=== PATIENT | female | born 2005 | race Caucasian/White ===

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

== ENCOUNTER 2025-01-06 20:03 | Emergency (ER) | payer OTHER, SELFPAY ==
[2025-01-06 20:05] VITALS: BP 115/82
[2025-01-06 21:17] VITALS: BMI 22.4
[2025-01-06] MEDS: NSS 1000 IV (21:17)
[2025-01-06 21:21] LABS: Hematocrit 39.5 % (37.0-47.0); Hemoglobin 13.1 g/dL (12.0-16.0); Mean Corp Hgb Conc. 33.2 g/dL (33.0-37.0); Mean Corpuscular Volume 85.9 fL (81.0-99.0); Nucleated Red Blood Cells % 0 %; Platelet Count 362 10^3/uL (130-400); Red Cell Dist. Width 12.5 % (11.5-14.5)
[2025-01-06 21:23] LABS: Urine Character Clear (Clear)
[2025-01-06 21:25] VITALS: BP 98/67
[2025-01-06 21:33] LABS: D-Dimer 0.33 ug/mlFEU (0.00-0.50)
[2025-01-06 21:37] LABS: COVID-19 Antigen Negative (Negative); HCG, Serum Qualitative Screen Negative
[2025-01-06 21:39] LABS: ALT (SGPT) 12 U/L (0-35); AST (SGOT) 19 U/L (14-36); Albumin 4.0 g/dl (3.5-5.0); Alkaline Phosphatase 38 U/L (38-126); Blood Urea Nitrogen 6 mg/dl (7-17); Calcium 9.4 mg/dl (8.4-10.2); Carbon Dioxide 27 mmol/L (22-30); Chloride 104 mmol/L (98-107); Estimated Creatinine Clearance 116 ml/min; Glucose 106 mg/dl (70-99); Potassium 4.1 mmol/L (3.5-5.1); Sodium 134 mmol/L (135-145); Total Protein 6.8 g/dl (6.3-8.2); eGFR > 60.00
[2025-01-06 22:00] VITALS: BP 97/68
--- NOTE | 2025-01-06 23:09 | ED.GENMED ---
History of Present Illness
General
Chief Complaint: Chest Pain
Source: patient and family
Exam Limitations: none
Time Seen by Provider: 01/06/25 20:23
Nursing documentation reviewed up to this point in time: agreed with
History of Present Illness
History of Present Illness:
Patient is a 19 year old female who presents to the emergency department with mom and dad for evaluation of persistent cough and fatigue. Patient states the symptoms initially started three weeks ago while at college with sore throat, cough,
fatigue. She was seen at a hospital at [facility], where she was found to have possible pneumonia in her right lower lung and treated w/ a course of azithromycin. She completed this course, however with persistent cough was then given an additional
course of cefuroxime.
She was seen by her local operations developer who prescribed a levoalbuterol inhaler, which she does not feel is helping.
She presents today as her fatigue and cough have persisted and urgent care recommended that she be evaluated for a pulmonary embolism.
While her cough has persisted, she�s denies any fever or chest pain. Her sore throat has improved. She denies any shortness of breath or lower leg swelling/pain.
Patient seems most concerned with her fatigue.
She is on an OCP. She denies any recent lengthy travel other than driving to/from [facility] which is approximately three hours. No personal or family history of clotting disorders. Patient does seem to have multiple chronic medical conditions,
including eosinophilic esophagitis, chronic G.I. dysfunction and POTS
Review of Systems
Review of Systems
Allergies reviewed?: Yes
All Other Systems: ROS reviewed and negative except as documented in HPI and ROS
Phy Exam
Physical Exam
Physical Exam:
Vitals: Patient's vital signs are stable. Afebrile
General: Patient is resting in no respiratory distress
Skin: Warm and dry, no rashes or lesions
Head: Normocephalic, atraumatic
Eyes: Sclera nonicteric.
Throat: Protecting airway
Neck: Normal ROM, no cervical spine tenderness, no meningismus
Cardiac: Regular rate and rhythm, no murmurs.
Pulm: Normal respiratory effort. Lungs clear bilaterally. No wheeze.
.
Abdomen: Abdomen soft. No abdominal tenderness.
Extremities: No evidence of cyanosis or edema
Neuro: AAOx3. Grossly intact
Psychiatric: Normal affect.
Scores
Heart Score for Chest Pain Patients
STEMI patient?: Not applicable
Course
Orders/Labs/Results
Orders:
Orders
01/06/25 20:09
EKG [Electrocardiogram (*1)] Urgent
Reason for Study: Shortness of Breath
EKG- Treatment ONCE
01/06/25 20:48
0.9% Sodium Chloride 1000 ml [Nss] 1,000 ml IV BOLUS
01/06/25 20:49
Test Result ONCE
01/06/25 20:57
COVID-19 Antigen Urgent
Source: Nasal Swab
Complete Blood Count/With Diff Urgent
Comprehensive Metabolic Panel Urgent
D-Dimer Urgent
HCG, Serum Qualitative Screen Urgent
Monotest Urgent
Influenza A+B Rapid Molecular Urgent
ANUJ Source: Nasal Swab
Specimen Description:
01/06/25 20:59
Urinalysis Reflex To Culture Urgent
Date Specimen was Collected: 01/06/25
Time Specimen was Collected: 20:59
Abnormal Lab Results
01/06/25
20:57
Eosinophils % 7.1 H %
(0-6)
Sodium 134 L mmol/L
(135-145)
BUN 6 L mg/dl
(7-17)
Glucose 106 H mg/dl
(70-99)
01/06/25 20:57
01/06/25 20:57
Vital Signs
Initial and Last Documented VS:
Initial Vital Signs
Temp Pulse Resp BP Pulse Ox
97.9 F 78 20 115/82 95
01/06/25 20:05 01/06/25 20:05 01/06/25 20:05 01/06/25 20:05 01/06/25 20:05
Last Documented Vital Signs
Temp Pulse Resp BP Pulse Ox
97.9 F 59 20 97/68 100
01/06/25 20:05 01/06/25 22:00 01/06/25 22:00 01/06/25 22:00 01/06/25 23:09
MDM/Problems Addressed
Differential Diagnosis Includes:
Not limited to: viral illness, post-viral syndrome, bronchitis, anemia, electrolyte abnormality, doubt pulmonary emboism
MDM/Problems Addressed:
19-year-old female with many weeks of fatigue and cough. Treated for pneumonia with both course of azithromycin and cefuroxime. Has inhaler at home which she feels isn�t working. Urgent care sent to rule out pulmonary embolism.
Patient has stable vital signs. She is not tachycardic or hypoxic. On exam, she appears to be in no distress. She�s non-toxic appearing. Cardio/pulmonary assessment unremarkable. No lower leg edema or tenderness.
Patient does have increased risk factors give she is on OCP, however very low suspicion for pulmonary embolism. Will screen with d-dimer. Symptoms most consistent with a post viral bronchitis. I did review patients most recent chest x-ray images
from urgent care a few days ago which appears clear and shows no evidence of focal consolidation.
Patients lab work, UA, viral studies are all normal. D-dimer is negative.
We did discuss repeat chest x-ray however, after shares decision-making with myself, patient and family will plan to hold off given multiple recent chest images and radiation exposure with overall very low suspicion for acute pulmonary process/
infection.
No evidence of acute, emergent pathology identified today. Possibly post viral. Her vital signs are stable and ultimately feel she is safe for discharge home with continued outpatient management with primary care and allergy/immunology. Advised to
continue inhaler as prescribed and stay hydrated. She declines and steroids as she does not react well. Very strict return precautions discussed. Patient and patients parents comfortable with plan.
Chronic conditions affecting care:
N/A
Acute Exacerbation and/or Progression of Chronic Illness:
N/A
*Pulse Oximetry
SaO2: 100
Oxygen Mode of Delivery: Room air
Patient hypoxic: no
*EKG
Interpreted by ED Provider?: Yes
EKG Intrepretation Date: 01/06/25
Interpretation: normal
Comparison EKG: no changes
Heart Rate: 68
Rate: normal
Rhythm: sinus
[place]: normal axis
Interval: normal QT interval
QRS Pattern: normal QRS
Ischemia: non-specific ST changes
*Tower Equipment Installer Interpretation
Rate: normal
Interpretation: normal
Heart Rate: 78
Rhythm: sinus
*Critical Care Note
Total Time (30-74mins, 75-104mins- exclusive of procedures): Not Applicable
Data Reviewed
Review of Other/Old Records Reveals: Radiology Studies (Reviewed outpatient chest xray performed earlier this week without acute findings)
ED Attending Note
-
Portions of this chart may have been created with voice recognition software.� Occasional wrong word or��sound alike� substitutions may have occurred due to the inherent limitations of voice recognition software.
Discharge Plan
Departure
Patient Disposition: Home (Routine Discharge)
Date of Disposition: 01/06/25
Time of Disposition: 22:49
Patient with high blood pressure during this ER visit?: No
Condition: Good
Covid-19: Negative COVID-19
Discharge Problem:
Fatigue, Cough
Instructions: Fatigue (DC), Cough in adults - ED (DC), BLOOD PRESSURE
Prescriptions:
No Action
norgestimate-ethinyl estradiol [Janene] 0.25-35 mg-mcg Tablet
1 tab PO DAILY
famotidine 10 mg Tablet
10 mg PO HS PRN (Reason: indigestion)
melatonin 3 mg Tablet
3 mg PO HS
clonazepam [Klonopin] 0.25 mg Tablet,Disintegrating
0.25 mg PO HS PRN (Reason: panic attack)
multivitamin Tablet
1 tab PO DAILY
Prilosec 10 mg susp,delayed release for recon
20 mg PO BID Qty: 30 0RF
polysaccharide iron complex [Ferrex 150] 150 mg iron Capsule
150 mg PO Q48H
fexofenadine [Bianca] 180 mg Tablet
180 mg PO BID
propranolol 10 mg Tablet
10 mg PO DAILY PRN (Reason: pots-to lower HR)
desvenlafaxine succinate [Pristiq] 50 mg Tablet Extended Release 24 Hr
50 mg PO DAILY
levalbuterol tartrate 45 mcg/actuation Hfa Aerosol Inhaler
2 inh INHALATION BID PRN (Reason: sob)
Referrals:
Alban Cordero MD [Family Provider, Family Practice] - Follow up in 5-7 days
Activity Restrictions/Additional Instructions:
RETURN TO THE EMERGENCY DEPARTMENT WITH ANY FEVER, CHILLS, PRODUCTIVE COUGH OR COUGHING UP BLOOD, CHEST PAIN OR SHORTNESS OF BREATH, WORSENING CURRENT SYMPTOMS, OR ANY OTHER CONCERNS
- As discussed, your lab work including blood counts and chemistry panel showed no acute abnormalities. Your D-dimer was negative. Your urinalysis showed no evidence of infection. Your viral swabs including COVID, influenza, and mono were
negative.
- I suspect you likely have a viral bronchitis. I recommend continuing inhaler as prescribed by your mattress renovator. It is warm to stay well-hydrated and get plenty of rest.
- Please follow-up with your mattress renovator and/or primary care for further evaluation/management and to ensure that symptoms improve
Monitor your symptoms closely and return to the emergency department with any acute worsening/new symptoms or any other concerns
Interventions
Interventions:
*Risk Screen - Suicide Last Done: 01/06/25 20:05
*General Assessment Last Done: 01/06/25 21:17
*Neglect/Abuse Screening Last Done: 01/06/25 20:05
*ED- Fall Risk Assessment Last Done: 01/06/25 21:17
*ED COVID-19 Vaccine History Last Done: 01/06/25 21:17
*ED Influenza Vaccine History Last Done: 01/06/25 21:17
*Nursing Disposition Last Done: 01/06/25 22:58
ED- Cardiac Assessment Last Done: 01/06/25 21:30
Discharge Date and Time
Discharge Date/Time: 01/06/25 22:58
Print Language: URUGUAYAN
== END 2025-01-06 22:58 | disposition home or self-care (01) ==
LOC: EMR 20:03
PROVIDERS: Physician Assistant; EMERGENCY PHYSICIAN Emergency Medicine; FAMILY PHYSICIAN Family Medicine
DX: R05.9 Cough, unspecified (principal); R53.83 Other fatigue; R06.02 Shortness of breath; R07.9 Chest pain, unspecified; Z11.52 Encounter for screening for COVID-19; K20.0 Eosinophilic esophagitis; G90.A Postural orthostatic tachycardia syndrome [POTS]; K58.9 Irritable bowel syndrome, unspecified; F90.9 Attention-deficit hyperactivity disorder, unspecified type; F41.9 Anxiety disorder, unspecified; F32.A Depression, unspecified; F42.9 Obsessive-compulsive disorder, unspecified; L94.9 Localized connective tissue disorder, unspecified; Z79.3 Long term (current) use of hormonal contraceptives; Z91.048 Other nonmedicinal substance allergy status
CPT/HCPCS: 99284; 96360; 80053; 81003; 84703; 85025; 85379; 86308; 87502; 87811; 93005

== ENCOUNTER 2025-01-26 06:19 | Day surgery (SDC) | payer OTHER, SELFPAY | END 2025-01-26 09:11 | disposition home or self-care (01) | LOC: GI 06:19 | PROVIDERS: ATTENDING PHYSICIAN Internal Medicine | DX: R93.3 Abnormal findings on diagnostic imaging of other parts of digestive tract (principal) | CPT/HCPCS: 45380; 88305 ==